=== PATIENT | male | born 1990 | race Caucasian/White ===

== ENCOUNTER 2017-11-30 06:14 | Emergency (ER) | payer MEDICAID ==
[~2017-11-30] VITALS: Ht 177.8 cm; Wt 82.0 kg
[2017-11-30] MEDS ORDERED: LIDOCAINE 2%, 20ML SQ ONE (07:00)
[2017-11-30] MEDS ORDERED: SODIUM CHLORIDE FLUSH 10ML SYR IVF ONE (07:00)
[2017-11-30] MEDS ORDERED: LIDOCAINE-MPF 2%, 2ML ONE ×2 (07:04→07:17)
[2017-11-30] MEDS ORDERED: BACITRACIN ZINC OINT 500U/GM, 0.9 GM ONE (07:31)
[2017-11-30] MEDS ORDERED: SULFAMETH./TRIMETHOPRIM DS 800MG/160MG TABLET ONE (07:54)
[2017-11-30 07:58] VITALS: BP 125/88
[2017-11-30] MEDS ORDERED: SULFAMETH./TRIMETHOPRIM DS 800MG/160MG TABLET PO ONE (08:00)
[2017-11-30] MEDS ORDERED: PLEASE ENTER HEIGHT AND WEIGHT MC SCH (08:00)
== END 2017-11-30 08:23 | disposition home or self-care (01) ==
LOC: ED 07:44
DX: L60.0 Ingrowing nail (principal); L03.031 Cellulitis of right toe
CPT/HCPCS: 11730; 99283; J3490